=== PATIENT | female | born 1940 | race Caucasian/White ===

== ENCOUNTER 2018-09-07 12:15 | Emergency (ER) | payer MEDICARE, OTHER ==
[2016-08-04 11:05] VITALS: BMI 23.4
[~2018-09-07 12:15] MED LIST: ASCO-188 PO; ASPI-1471 PO; ATOR20TA65 PO; ATOR40TA24 PO; CALC625T80 PO; CYCL10TA29 PO; GOLYTE PO; HYDR-317 PO; OMEG1CAP32 PO; OXYC-865 PO; PER PO; PRAV20TA66 PO; RIV10 PO; UBID10CA11 PO; UBID1CAP94 PO
--- NOTE | 2018-09-07 12:29 | ER Report ---
History and Physical Time Seen By MD: 12:29 Hx. of Stated Complaint: PATIENT FELL WHILE GOING OUT OF [facility] AND FELL OVER TOP THE CART OUTSIDE; PT STATES SHE HAS LEFT KNEE SWELLING AND PAIN AND RIGHT JACKSON SWELLING AND PAIN HPI/ROS CHIEF COMPLAINT: Fall HISTORY OF PRESENT ILLNESS: Patient is a 78-year-old female who was walking outside of these parking lot when she tripped falling over a shopping cart. She is complaining of pain to both the left and right proximal tib-fib area. Patient is able to ambulate. Patient denies any other injuries. She denies any headache or neck pain. Patient denies being on any blood thinners. REVIEW OF SYSTEMS: Respiratory: No cough, no dyspnea. Cardiovascular: No chest pain, no palpitations. Gastrointestinal: No vomiting, no abdominal pain. Musculoskeletal: No back pain. Bilateral lower leg pain Allergies: Coded Allergies: codeine (Verified Allergy, Severe, SKIN CHRISTOPHER/BLISTERS , 09/07/18) USUALLY RIGHT BELOW BREAST Home Meds Reported Medications [place]-3 Fatty Acids/Fish Oil (FISH OIL 1,000 MG SOFTGEL) 1 Each Capsule, 1 EACH PO QDAY, CAPSULE 12/28/16 Ubidecarenone/Vit E Acetate (CO Q-10 100 MG SOFTGEL) 1 Each Capsule, 1 EACH PO QDAY, CAPSULE 12/28/16 Atorvastatin Calcium (LIPITOR) 40 Mg Tablet, 2 TAB PO HS, TAB 08/17/16 Aspirin (ASPIR 81) 81 Mg Tablet.dr, 81 MG PO QDAY, TAB 08/03/16 Discontinued Reported Medications Oxycodone Hcl/Acetaminophen (PERCOCET 5-325 MG TABLET) 1 Each Tablet, 1-2 EACH PO Q4-6H PRN for PAIN, #60 TAB 01/31/17 Past Medical/Surgical History Hypercholesterolemia Hx Smoking: No Smoking Status: Never Smoker Exposure to Second Hand Smoke?: Yes Hx Substance Use Disorder: No Hx Alcohol Use: No Constitutional Vital Sign - Last 24 Hours 09/07/18 12:24 Temp 97.9 Pulse 81 Resp 17 B/P (MAP) 162/78 Pulse Ox 92 O2 Delivery Room Air Physical Exam General appearance: [Alert no distress.] Respiratory: Chest is non tender, lungs are clear to auscultation. Cardiac: Regular rate and rhythm [ ] Extremities: Vision has a contusion to the right anterior jackson approximately middle 3rd of the left anterior jackson proximal one third has a hematoma. There is no break in the skin. [ ] Medical Decision Making EKG/Imaging Imaging Left tib-fib negative for acute injury Right tib-fib negative for acute injury These films were interpreted by myself ED Course/Re-evaluation ED Course 09/07/2018 12:43:42 pm when at this time will be to x-ray both left and right t ib-fib Decision to Disposition Date: Sep 07, 2018 Decision to Disposition Time: 13:09 Depart Departure Latest Vital Signs Vital Signs Date Time Temp Pulse Resp B/P (MAP) Pulse Ox O2 Delivery O2 Flow Rate FiO2 09/07/18 12:24 97.9 81 17 162/78 92 Room Air Impression: Primary Impression: Contusion of leg, right Additional Impression: Contusion of leg, left Condition: Improved Disposition: HOME OR SELF-CARE Patient Instructions: Contusion in Adults (ED) Problem Qualifiers Primary Impression: Contusion of leg, right Encounter type: initial encounter Qualified Codes: S80.11XA - Contusion of right lower leg, initial encounter Additional Impression: Contusion of leg, left Encounter type: initial encounter Qualified Codes: S80.12XA - Contusion of left lower leg, initial encounter LOR MURPHY MD Sep 07, 2018 12:29
[2018-09-07 13:00] VITALS: BP 123/64
--- NOTE | 2018-09-07 13:08 | RADIOLOGY IMAGING REPORT ---
[place]AC[place] [facility] [place] NAME: Ruth Farley : 1940 MR: [id number] V: [id number] EXAM DATE: ORDERING PHYSICIAN: LOR MURPHY TECHNOLOGIST: Location: [facility] Patient: Ruth Farley : 1940 Visit/Account:[id number] Date of Sevice: 09/07/2018 TIBIA FIBULA RIGHT, TIBIA FIBULA LEFT Indication: fall Comparison: None. Findings: Left tibia and fibula radiograph: Normal mineralization is seen. There is no evidence of fracture. Soft tissues are normal. Right tibia and fibular radiograph: Normal mineralization is seen. There is no evidence of fracture. Soft tissues are normal. IMPRESSION: Normal right and left tibia/fibular radiograph. Report Dictated By: Rene Nobles at 09/07/2018 1:02 PM Report E-Signed By: Rene Nobles at 09/07/2018 1:04 PM WSN:[email or web address]
--- NOTE | 2018-09-07 13:09 | RADIOLOGY IMAGING REPORT ---
FACILITY: [facility] - [place] PATIENT NAME: Ruth Farley : 1940 MR: [id number] V: [id number] EXAM DATE: ORDERING PHYSICIAN: LOR MURPHY TECHNOLOGIST: Location: [facility] Patient: Ruth Farley : 1940 Visit/Account:[id number] Date of Sevice: 09/07/2018 TIBIA FIBULA RIGHT, TIBIA FIBULA LEFT Indication: fall Comparison: None. Findings: Left tibia and fibula radiograph: Normal mineralization is seen. There is no evidence of fracture. Soft tissues are normal. Right tibia and fibular radiograph: Normal mineralization is seen. There is no evidence of fracture. Soft tissues are normal. IMPRESSION: Normal right and left tibia/fibular radiograph. Report Dictated By: Rene Nobles at 09/07/2018 1:02 PM Report E-Signed By: Rene Nobles at 09/07/2018 1:04 PM WSN:[email or web address]
== END 2018-09-07 13:19 | disposition home or self-care (01) ==
LOC: ER 12:34
DX: S80.11XA Contusion of right lower leg, initial encounter (principal); S80.12XA Contusion of left lower leg, initial encounter; W01.0XXA Fall on same level from slipping, tripping and stumbling without subsequent striking against object, initial encounter; Y92.481 Parking lot as the place of occurrence of the external cause
CPT/HCPCS: 99283

== ENCOUNTER → 2018-11-09 | Outpatient (CLI) | payer MEDICARE, OTHER ==
[2016-08-04 11:05] VITALS: BMI 23.4
--- NOTE | 2018-11-09 11:45 | RADIOLOGY IMAGING REPORT ---
[place] [facility] [place] NAME: Ruth Farley : 1940 MR: [id number] V: [id number] EXAM DATE: ORDERING PHYSICIAN: IHSAN BOLIVAR TECHNOLOGIST: [place] [facility] [place]: Ruth Farley : 1940 Visit/Account:[id number] Date of Sevice: 11/09/2018 Exam type: US VENOUS LOWER EXT LT History: Pain in left leg, fell in August Comparison: None. Findings: The left lower extremity veins were imaged including the left common femoral vein greater saphenous v ein superficial femoral vein popliteal vein posterior tibial vein peroneal vein and anterior tibial v ein revealing no evidence of intraluminal thrombi. The veins were compressible and demonstrated augm entation. Incidentally noted are fatty replaced lymph nodes in the left inguinal region IMPRESSION: 1. No sonographic evidence DVT involving the left lower extremity veins Incidental note of fatty replaced lymph nodes in the left inguinal region Report Dictated By: Ela Campuzano MD at 11/09/2018 11:39 AM Report E-Signed By: Ela Campuzano MD at 11/09/2018 11:40 AM WSN:[email or web address]
== END ==
LOC: US 01:39
PROVIDERS: ATTEND Family Medicine
DX: M79.605 Pain in left leg (principal)